=== PATIENT | male | born 1955 | race Caucasian/White ===

== ENCOUNTER 2017-10-05 11:36 | Emergency (ER) | payer OTHER ==
--- NOTE | 2017-10-05 12:04 | PHYS DOC ---
Adult General Chief Complaint Chief Complaint: FACE PAIN HPI HPI Patient is a 62-year-old gentleman who presents to the ER today secondary to trauma to the right side of his face including his right infraorbital, right zygomatic and right nasal area. 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 Patient reports he was in [facility] at that time and he was unable to seek medical attention at that time. Patient reports his nose is crooked although the last several hours he reports he does lift was greater than 1 first occurred. Patient reports he had some bleeding from his nose that occurred however that has stopped. Patient has any visual changes. Patient has any LOC. Patient has a nausea vomiting. 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 Patient has any fevers shakes chills cough cold rhinorrhea dysuria frequency urgency. Patient has any other medical problems. Patient is requesting that we obtain an x-ray of his nose for his own knowledge with her not it is broken. Patient reports that he usually has a deviated septum where his right nostril smaller than his left. Review of Systems Review of Systems Review of systems: Constitutional: Denies fever or chills Eyes: Denies change in visual acuity, redness, or eye pain HENT: Denies nasal congestion or sore throat Respiratory: Denies cough or shortness of breath All other systems were reviewed and found to be within normal limits, except as documented in this note. Physical exam: Constitutional: Well developed, well nourished, no acute distress, non-toxic appearance. HENT: Normocephalic, atraumatic, bilateral external ears normal, nose normal. Eyes: PERRLA, EOMI, conjunctiva normal, no discharge. Neck: Normal range of motion, no tenderness, supple, no stridor. Cardiovascular: Heart rate regular rhythm, Lungs & Thorax: Bilateral breath sounds clear to auscultation Abdomen: No abdominal distention. Skin: Warm, dry, no erythema, no rash. Back: Normal spinal curvature Extremities: No tenderness, no cyanosis, no clubbing, ROM intact, no edema. Neurologic: Alert and oriented X 3, normal motor function, normal sensory function, no focal deficits noted. Psychologic: Affect normal, judgement normal, mood normal. Patient's ER physical exam was most remarkable: Patient's ER exam is consistent with soft tissue swelling to his nose with a superficial abrasion to the right infraorbital region with periorbital ecchymosis around the right I. Patient has no septal hematoma, patient has no crepitance, patient is alert awake and oriented 3 and appropriate. Nasal x-ray consistent with nasal fracture Assessment and plan: 1. Nasal fracture: 62-year-old gentleman with head trauma to his nose and infraorbital region with no LOC. Patient reports episode occurred approximately 2 days ago. Patient drove throughout the night last night back to [place]. Patient is clinically hemodynamically stable without evidence of intracranial pathology. Patient has requested an x-ray of his nose to identify any acute fractures. Patient be given a tetanus shot and Motrin. Current Medications Current Medications Current Medications Medications (Trade) Dose Ordered Sig/Luly Start Time Stop Time Status Last Admin Dose Admin Diphtheria/ Tetanus/Acell Pertussis (Boostrix) 0.5 ml ONCE ONCE 10/05/17 12:00 10/05/17 12:01 UNV EKG EKG [] Radiology/Procedures Radiology/Procedures [] Course & Med Decision Making Course & Med Decision Making Pertinent Labs and Imaging studies reviewed. (See chart for details) [] Dragon Disclaimer Dragon Disclaimer This electronic medical record was generated, in whole or in part, using a voice recognition dictation system. Departure Departure: Impression: Primary Impression: Nasal fracture Additional Impressions: Head trauma Facial laceration Disposition: HOME, SELF-CARE Condition: IMPROVED Referrals: PCP,NO (PCP) Patient Instructions: Head Injury, Adult, Nasal Fracture Additional Instructions: You were seen in the ER today secondary to a injury to her face. You have been given a tetanus shot today. The x-ray of the nose reveals that he do have a nasal fracture. Once all the swelling resolves he may want to make an appointment to see either a plastic surgeon or an ENT doctor if you require straightening of your nose. You'll be given a prescription for Keflex which is an antibiotic to prevent infection as well as extremities ibuprofen to assist you with pain. Scripts Cephalexin (KEFLEX) 500 Mg Capsule 1 CAP PO TID, #30 CAP Prov: KYMBERLY NATION MD 10/05/17 Ibuprofen (IBUPROFEN) 600 Mg Tablet 600 MG PO QID Y for PAIN, #20 Prov: KYMBERLY NATION MD 10/05/17 Problem Qualifiers KYMBERLY NATION MD Oct 05, 2017 12:04
[2017-10-05] MEDS: DIPHTH,PERTUSS(ACELL),TET TOX 0.5 ML DISP.SYRIN. VAX IM ONE (12:11)
[2017-10-05] MEDS ORDERED: CEPH-264 PO (12:15)
[2017-10-05] MEDS ORDERED: IBUP600T16 PO (12:15)
--- NOTE | 2017-10-05 12:24 | RAD ---
Nasal bones, 3 views, 10/05/2017: History: Nasal trauma There is a comminuted fracture of the nasal bones. The major fracture fragments show no significant displacement. IMPRESSION: Acute comminuted nasal bone fracture
[2017-10-05 12:34] VITALS: BP 144/95
== END 2017-10-05 12:34 | disposition home or self-care (01) ==
LOC: ER 11:36
DX: S02.2XXA Fracture of nasal bones, initial encounter for closed fracture (principal); S09.90XA Unspecified injury of head, initial encounter; Z99.2 Dependence on renal dialysis; W22.8XXA Striking against or struck by other objects, initial encounter; Y93.89 Activity, other specified; Y99.8 Other external cause status; Y92.488 Other paved roadways as the place of occurrence of the external cause
CPT/HCPCS: 70150; 90471; 90715; 99284-25